=== PATIENT | male | born 1950 | race Caucasian/White ===

== ENCOUNTER 2025-06-01 06:33 | Day surgery (SDC) | payer MEDICARE, SELFPAY ==
[2025-05-29 10:22] VITALS: BMI 26.9
--- NOTE | 2025-05-30 13:16 | EXP.HP ---
History of Present Illness *Admission Date: 06/01/25 *History of present illness: Mr. Becker is a 74-year-old gentleman who is here for screening/surveillance colonoscopy. The patient does have a personal history of adenomatous colon polyps. He had a colonoscopy with me 25 years ago that was normal. His colonoscopy 15 years ago at [facility] revealed some polyps. His colonoscopy with me in February 2015 revealed 2 polyps (tubular adenomas x 2) which were removed. His last colonoscopy in March 2020 revealed 4 colon polyps (small tubular adenomas x 4) which were removed. He reports no abdominal pain, weight loss, change in his bowel habits or rectal bleeding. He reports no family history of colon cancer. The examination is deemed medically necessary for screening/surveillance colonoscopy. The patient has been seen, interviewed and examined prior to the procedure by both myself and the anesthesia provider. [facility] Disclaimer: The information contained in this section may have been updated after the patient was seen, as this information can be updated by other users. Medical History History of hypertension History of hyperlipidemia Pacemaker Surgical History History of tonsillectomy and adenoidectomy History of appendectomy Family History Other No significant family history Social History (Updated 06/01/25 @ 07:12 by Vishal Riggs CRNA) Smoking Status: Never smoker alcohol intake: current substance use type: denies use current occupational status: retired Travel in the last 8 weeks?: None caffeine: No Have you lived/traveled outside [place] in past 30 days?: No Contact w/someone who lives/traveled outside [place] past 30 days?: No Exposure to someone with infectious disease in past 14 days?: No Do you have a fever (greater than 100.4 F or 38 C)?: No Have you tested positive for COVID-19?: No Exposed to someone with COVID-19 in past 14 days?: No Do you have a sore throat?: No Do you have a cough?: No Do you have any weakness?: No Are you experiencing any nausea/vomitting?: No Do you have any diarrhea?: No Are you experiencing any unusual bleeding?: No Do you have any muscle aches/pain?: No Do you have any abdominal pain?: No Are you experiencing loss of taste or smell?: No Review of Systems Review of Systems Review of systems (narrative): Negative *Cardiovascular Comments: Negative *Gastrointestinal Comments: Negative *Genitourinary Comments: Negative *Musculoskeletal Comments: Negative *Neurologic Comments: Negative Meds Home Medications and Allergies Home Medications ?Medication ?Instructions ?Recorded ?Confirmed ?Type sodium,potassium,mag sulfates 17.5 See Rx Instructions PO .COMPLEX 05/18/25 Rx gram-3.13 gram-1.6 gram oral soln #354 mL (Suprep Bowel Prep Kit) apixaban 2.5 mg tablet (Eliquis) 2.5 mg PO BID 05/29/25 06/01/25 History atorvastatin 40 mg tablet 40 mg PO DAILY 05/29/25 06/01/25 History lisinopril 20 1 tab PO DAILY 05/29/25 06/01/25 History mg-hydrochlorothiazide 12.5 mg tablet New Prescriptions to Start Prescriptions: Allergies Allergy/AdvReac Type Severity Reaction Status Date / Time No Known Allergies Allergy Verified 06/01/25 06:58 Exam Data for Last 24 hours I & O for Last 24 hours: Intake & Output 05/27/25 05/28/25 05/29/25 05/30/25 23:59 23:59 23:59 23:59 Weight 215 lb *Routine HEENT Exam Head: Present normocephalic Eye: Present EOMI and PERRL ENT: Present mucous membranes moist *Routine Neck Exam Neck: Present supple *Routine Respiratory Exam Respiratory: Present CTA bilaterally *Routine Cardiovascular Exam Cardiovascular: Present RRR *Routine Abdominal Exam Abdominal: Present soft and normoactive bowel sounds; Absent tenderness *Routine Rectal Exam Rectal:: deferred *Routine Genitalia Exam Genitalia:: deferred *Routine Extremities Exam Extremities: Absent cyanosis, clubbing or edema *Routine Skin Exam Skin: Present warm; Absent rash *Routine Neurological Exam Neurological: Present alert and oriented X3 Assessment and Plan *Assessment and plan (1) Screening for colon cancer: Status: Acute Category: Medical Code(s): Z12.11 - Encounter for screening for malignant neoplasm of colon (2) Personal history of adenomatous and serrated colon polyps: Status: Acute Category: Medical Code(s): Z86.0101 - Personal history of adenomatous and serrated colon polyps Plan A/P: 1. Personal history of adenomatous colon polyps is the preprocedural diagnosis. The patient will be anesthetized/sedated using MAC sedation. The patient has been seen and examined. Cardiac and lung assessment prior to the examination is stable. Proceed with planned screening/surveillance colonoscopy.
--- NOTE | 2025-06-01 06:35 | P.PCN_ITS ---
[facility] Procedure Note Date: 06/01/25 Time: 07:48 Procedure Note:: Colonoscopy Procedure Report: Colonoscopy Endoscopist: Apollo Rousseau II, MD Referring physician: Abel Worthy M.D. Date of Procedure: June 01, 2025 Equipment: Olympus [id number] adult colonoscope Sedation: MAC sedation Indication: Mr. Becker is a 74-year-old gentleman who is here for screening/surveillance colonoscopy. The patient does have a personal history of adenomatous colon polyps. He had a colonoscopy with dc 25 years ago that was normal. His colonoscopy 15 years ago at [facility] revealed some polyps. His colonoscopy with me in February 2015 revealed 2 polyps (tubular adenomas x 2) which were removed. His last colonoscopy in March 2020 revealed 4 colon polyps (small tubular adenomas x 4) which were removed. He reports no abdominal pain, weight loss, change in his bowel habits or rectal bleeding. He reports no family history of colon cancer. His mother had more advanced adenomatous colon polyps. The examination is deemed medically necessary for screening/surveillance colonoscopy. Procedure: Prior to the procedure, a history and physical exam was performed, and patient's medications and allergies were reviewed. The risks, benefits and alternatives of the sedation and procedure were discussed with the patient. All questions were answered and informed consent was obtained. The patient was brought to the procedure room. Patient identification and proposed procedure were verified by the physician and the nurse. The patient was placed in a left lateral decubitus position and the scope was passed under direct vision. Throughout the procedure, the patient's blood pressure, pulse, and oxygen saturations were monitored continuously. The colonoscopy was accomplished without difficulty. The patient tolerated the procedure well. Findings: On digital rectal examination there was normal rectal tone. There were no external hemorrhoids. The colonoscope was introduced through the anal canal to the rectum and advanced to the cecum. The ileocecal valve and appendiceal orifice were identified. The scope was advanced a short distance into the ileum which appeared grossly normal. The scope was then withdrawn into the colon. The cecum, ascending, transverse, descending, sigmoid and rectum were grossly normal. There were no mucosal abnormalities identified. Upon retroflexion within the rectum there were grade 1-2 internal hemorrhoids. The preparation was excellent throughout with [place] Preparation Score of 9. The cecal time was 12 minutes. Impression: 1. Normal colonoscopy with intubation of the terminal ileum Plan: The patient should not require any further preventative/surveillance colonoscopy.
[2025-06-01 07:00] VITALS: BP 146/86; PULSE 77; RESP 16; TEMP 36.1; O2SAT 96
[2025-06-01] MEDS: LACTATED RINGERS 1000ML 1,000 ML 50 ML IV (07:09)
--- NOTE | 2025-06-01 07:12 | EXP.ANES.CKL ---
[facility] Disclaimer: The information contained in this section may have been updated after the patient was seen, as this information can be updated by other users. Medical History History of hypertension History of hyperlipidemia Pacemaker Surgical History History of tonsillectomy and adenoidectomy History of appendectomy Family History Other No significant family history Social History Smoking Status: Never smoker alcohol intake: current substance use type: denies use current occupational status: retired Travel in the last 8 weeks?: None caffeine: No [facility] Anesthesia Checklist Patient Identification Patient Identification: Arm Band and Verbal (Name & ) Structural Data Admitted From: Home Planned Operative Procedure/s: Colonoscopy Consent for Planned Operative Procedure(s) Verified: Yes Verified Documents: Surgical Consent NPO Status Verified Time NPO: 00:00 Additional verifications Anesthesia Reactions: No Airway Assessment Mallampati Score:: Class II C-Spine Mobility Assessed: Yes TMJ Mobility Assessed: Yes Dentition: Good Dentition Neurological Assessment Level of Consciousness: Awake, Alert and Appropriate Hx Seizures: No Numbness or tingling in extremities: No Anesthesia Plan Anesthesia Risk discussed: Yes Anesthesia Plan: Verified ASA Class: III Anesthesia Type: MAC
[2025-06-01 07:50] VITALS: BP 93/58; PULSE 62; RESP 16; TEMP 36.4; O2SAT 95
[2025-06-01 08:00] VITALS: BP 91/56; PULSE 62; RESP 16; O2SAT 98
[2025-06-01 08:10] VITALS: BP 97/61; PULSE 60; RESP 16; O2SAT 98
[2025-06-01 08:20] VITALS: BP 97/61; PULSE 60; RESP 18; O2SAT 98
[2025-06-01 08:30] VITALS: BP 103/67; PULSE 60; RESP 18; O2SAT 98
== END 2025-06-01 08:38 | disposition home or self-care (01) ==
PROVIDERS: PCP Internal Medicine; Visit Provider Internal Medicine Gastroenterology
PROC: 0DJD8ZZ Inspection of Lower Intestinal Tract, Via Natural or Artificial Opening Endoscopic (ICD-10-PCS; CPT 45378; principal; 2025-06-01 08:00)
DX: Z12.11 Encounter for screening for malignant neoplasm of colon (principal); K64.0 First degree hemorrhoids; K64.1 Second degree hemorrhoids; I10 Essential (primary) hypertension; E78.5 Hyperlipidemia, unspecified; Z79.01 Long term (current) use of anticoagulants; Z86.0101 Personal history of adenomatous and serrated colon polyps; Z95.0 Presence of cardiac pacemaker
CPT/HCPCS: 45378; J2003; J2704; J7120